=== PATIENT | female | born 1955 | race Asian ===

== ENCOUNTER 2016-08-24 20:10 | Emergency (ER) | payer OTHER ==
[~2016-08-24] VITALS: Ht 160 cm; Wt 50.9 kg
[2016-08-24 20:18] VITALS: BP 145/70; PULSE 76; RESP 16; O2SAT 98
[2016-08-24 21:03] LABS: EOSINOPHILS % (AUTO) 1.1 % (0-5); Mean Corpuscular Hemoglobin 27.5 pg (27.0-35.0); Mean Corpuscular Volume 85.6 fL (81-100); NEUTROPHILS % (AUTO) 72.3 % (40-74); Platelet Count 235 bil/L (150-400)
--- NOTE | 2016-08-24 21:13 | DRSVH ---
PROCEDURE: X-RAY CHEST ONE VIEW, PORTABLE ([id number]) INDICATIONS: Syncope TECHNIQUE: One view of the chest was acquired. COMPARISON: None. FINDINGS: Surgical changes and devices: None. Lungs and pleura: No pleural effusions or pneumothorax. Lungs are clear. Mediastinum: Mediastinal contours appear normal. Heart size is markedly enlarged. Bones and chest wall: No suspicious bony lesions. Overlying soft tissues appear unremarkable. IMPRESSION: Marked cardiomegaly. No prior comparisons are available to determine the acuity of this f inding. No acute airspace opacities. Dictated by: Natalie Elder M.D. on 08/24/2016 at 21:11 Approved by: Natalie Elder M.D. on 08/24/2016 at 21:12
--- NOTE | 2016-08-24 21:34 | ED.REPORT ---
HPI-Syncope Date of Service Aug 24, 2016 ED Provider: Guille Barajas MD History of Present Illness: Charu Galdamez is a 61 year old woman with a PMH of Afib on Coumadin, newly diagnosed CHF with elevated right sided pressures and paroxysmal Hypotension, and a strong family history of CVA with an older sister and her mother having severe strokes in their early sixties. History is obtained primarily from her Niece who works in the OR at [employer]. She relates that Charu had been feeling fatigued with a headache and cool extremities for the past 2-3 days, and was taking a nap in the evening before dinner; she then got up to go to the kitchen and was talking with her niece for a few minutes then complained of dizziness and sat down; shortly thereafter she began slumping to the right and lost conciousness. Her niece alerted EMS, and reports that the patient was insensate for at least 5 minutes before gradually returning to awareness over the next few minutes. She denies tonic clonic movements, bowel or bladder incontinence, tongue biting, facial drooping, slurred speech, unilateral weakness or tingling, or changes in vision or sensation. The patient states that she currently feels drowsy but otherwise has no complaints. Of note the patient was discharged from [facility] in [place] 18 days ago for CHF exacerbation. Nursing Notes Stated Complaint: SYNCOPE Chief Complaint: General Complaint Nursing Notes Reviewed: Yes Allergies: Coded Allergies: No Known Allergies (Unverified , 08/24/16) General Time Seen by Provider: 21:12 Chief Complaint Lost consciousness Syncope Description: Single episode Sat down because she was feeling dizzy, then slumped to the right and was not aware for about 5 minutes Hx Obtained From: Patient, Other family... (Niece) Onset Occurred: 1 - 4 hours ago Symptom Duration: 1 - 15 minutes Progression Since Onset: Gradually improving Recent Healthcare: Recent hospitalization Similar Sx Previous: No Risk-Syncope CAD Risk Stratification Hypertension TAD Risk Stratification Hypertension SAH Risk Stratification Hypertension Past Medical History Past Medical History Afib on Coumadin CHF with elevated right sided pressures Strong FHx of CVA Review of Systems Constitutional: Reports: Chills Neurologic: Reports: Dizziness Physical Exam Physical Exam Notes: Gen: A/O x3, quiet pleasant woman in NAD Neck: Supple, non tender, Full ROM, no thyromegally HEENT: PERRL, EOMI, no scleral icterus, no conjunctival pallor CV: RRR, no murmurs rubs or gallops Resp: Lungs CTA BL, no wheezing rales or rhonchi Extr: No cyanosis clubbing or edema Neuro: CN 2-12 intact, no focal neurologic deficit. Initial Vital Signs Vital Signs (First) Date Time Temp Pulse Resp B/P Pulse Ox O2 Delivery O2 Flow Rate FiO2 08/24/16 20:18 36.6 76 16 145/70 98 Room Air Initial VS: Reviewed, Vital signs normal Interpretation & Diagnostics Lab Results Interpretation Result Diagram: 08/24/16205808/[id number]/[id number] Test 08/24/16 20:59 08/24/16 21:45 08/24/16 21:50 08/24/16 23:10 White Blood Count 7.0th/mm3 (3.8-10.1) Red Blood Count 5.20mil/mm3 (3.90-5.20) Hemoglobin 14.3g/dL (12.0-15.6) Hematocrit 44.5% (35.0-46.0) Mean Corpuscular Volume 85.6fL (81-100) Mean Corpuscular Hemoglobin 27.5pg (27.0-35.0) Mean Corpuscular Hemoglobin Concent 32.1% (32.0-37.0) Red Cell Distribution Width 24.8% (12.3-15.4) Platelet Count 235bil/L (150-400) Neutrophils (%) (Auto) 72.3% (40-74) Lymphocytes (%) (Auto) 14.3% (14-46) Monocytes (%) (Auto) 11.0% (4-12) Eosinophils (%) (Auto) 1.1% (0-5) Basophils (%) (Auto) 1.0% (0-3) Prothrombin Time 26.2sec (8.1-12.5) Prothromb Time International Ratio 2.41ratio Sodium Level 133mEq/L (134-144) Potassium Level 3.8mEq/L (3.5-5.2) Chloride Level 96mEq/L (97-108) Carbon Dioxide Level 19mmol/L (18-29) Blood Urea Nitrogen 12mg/dL (8-27) Creatinine 0.55mg/dL (0.57-1.00) Estimat Glomerular Filtration Rate 160mL/min (>59) Glucose Level 122mg/dL (60-99) Calcium Level 9.3mg/dL (8.5-10.1) Magnesium Level 1.8mg/dL (1.6-2.6) Total Bilirubin 3.1mg/dL (0.0-1.2) Aspartate Amino Transf (AST/SGOT) 63U/L (0-50) Alanine Aminotransferase (ALT/SGPT) 46U/L (0-32) Alkaline Phosphatase 98U/L (25-165) Pro-B-Type Natriuretic Peptide 296.2pg/mL (0-287) Total Protein 8.0g/dL (6.4-8.4) Albumin 4.1g/dL (3.4-5.0) Hold Moody Top Tube Received (Received) Troponin T 0.010ug/L (0.0-0.011) Test 08/24/16 23:58 Urine Color Dark yellow (YELLOW) Urine Appearance Clear (CLEAR,HAZY) Urine pH 7.0 (5.0-8.0) Urine Specific [place] 1.015 (1.003-1.035) Urine Protein Tracemg/dL (NEG,TRACE) Urine Glucose (UA) Negativemg/dL (NEGATIVE) Urine Ketones 15mg/dL (NEGATIVE) Urine Occult Blood Trace (NEGATIVE) Urine Nitrite Negative (NEGATIVE) Urine Bilirubin Small (NEGATIVE) Urine Ictotest Positive (Negative) Urine Urobilinogen 2.0mg/dL (NORMAL) Urine Leukocyte Esterase Negative (NEGATIVE) Urine RBC 0-2/hpf (0-2) Urine WBC 0-5/hpf (0-5) Urine Epithelial Cells Occasional/hpf (NONE-MOD) Urine Crystals Oxalic acid crystals (NONE Urine Bacteria None/hpf (NONE-FEW) Urine Hyaline Casts None/lpf (NONE) Urine Granular Casts None seen (NONE SEEN) Urine Waxy Casts None seen (NONE SEEN) Urine Red Blood Cell Casts None seen (NONE SEEN) Urine White Blood Cell Casts None seen (NONE SEEN) Urine Mucus Present (None Seen) Urine Trichomonas None seen (NONE SEEN) Urine Yeast None (NONE SEEN) Urine Culture Reflexed Not indicated Lab values outside NL range: no clinical significance. X-Ray Chest Interpretation Interpretation / Wet Read by: Interpret - Radiologist NL X-Ray Chest Findings: No acute disease Miscellaneous: Cardiomegaly present CT Head Interpretation Interpretation / Wet Read by: Interpret - Radiologist NL CT Head Findings: No acute disease (microvascular ischemic changes) Re-Eval/Medical Decision Med Decision/Clinical Course Patient with a Strong family history for CVA in early sixties, Brain CT unremarkable with only early microvascular ischemic changes. Orthostatic BP unremarkable. Lab evaluation remarkable for mildly elevatged BNP and slight transaminitis with oxalate crystals in the urine. Serial Trop x2 negative. Given relatively unremarkable lab work and imaging patient appears appropriate to DC home with close follow up with her PCP. Patient was given discharge instructions and return precautions. Counseled Regarding: Diagnosis, Lab results, Need for follow-up, When/why to return to ED Discharge & Departure Shift Change Sign-Out Patient Care Transferred: No Discussed Complaint(s): Yes Laboratory Evaluation: Lab evaluation discussed Imaging Studies: Imaging discussed Impression: Primary Impression: Syncope Syncope type: unspecified Qualified Code: R55 - Syncope and collapse Disposition: Home Discharge Condition All VS Reviewed: Yes Condition: Stable Patient Instructions: Syncope (ED) Additional Instructions: It is unclear exactly what happened to cause your passing out event. We can say that you did not have a heart attack, and your brain scan shows that you did not have a large or ongoing stroke. You may have had a very small stroke called a TIA which resolved on its own, you may have also had a heart rhythm problem that resolved. I recommend that you follow up with your primary care doctor or another provider such as the residency Clinic for further evaluation possibly with a Holter monitor. I also recommend that you increase you water intake, now that you are on a water pill you are more prone to dehydration which can cause dizziness and fainting. If you have any difficulties speaking, any changes in vision or sensation, any drooping or your face, or weakness numbness or tingling in your arms or legs; please seek medical attention immediately. Referrals: Berto Josue MD Attending Statement The patient was seen and examined together with Dr. Rui David and I agree with the history, exam and plan as outlined in the note above. copies to: Berto Josue MD, David E DO Aug 24, 2016 21:34 Guille Barajas MD Aug 25, 2016 06:23
--- NOTE | 2016-08-24 21:46 | DRSVH ---
PROCEDURE: CT BRAIN WITHOUT CONTRAST ([id number]) INDICATIONS: syncope, atrial mural thrombus, headache TECHNIQUE: Noncontrast 4.5 mm thick angled axial sections acquired from the foramen magnum to the vertex, with c oronal reformats. COMPARISON: None. FINDINGS: Image quality: Excellent. CSF spaces: Basal cisterns are patent. No extra-axial fluid collections. The ventricles are symmet yaakov in size and shape. There is incidentally noted cavum septum pellucidum. Brain: No intracranial bleeds or masses. There is cerebral volume loss for age, with resultant vent ricular and sulcal prominence. There are periventricular and deep white matter chronic small vessel ischemic changes. There is intracranial internal carotid artery atherosclerosis. Skull and face: Calvarium and visualized facial bones appear intact, without suspicious lesions. Sinuses: Visualized sinuses and mastoids are clear. IMPRESSION: 1. No acute intracranial findings. 2. Mild findings likely associated with early microvascular ischemic changes. Dictated by: Natalie Elder M.D. on 08/24/2016 at 21:43 Approved by: Natalie Elder M.D. on 08/24/2016 at 21:44
[2016-08-24 22:11] LABS: INR 2.41 ratio
[2016-08-24 22:24] LABS: TROPONIN T 0.01 ug/L (0.0-0.011)
[2016-08-24 22:37] LABS: Magnesium 1.8 mg/dL (1.6-2.6)
[2016-08-24 23:59] VITALS: BP 117/58; PULSE 70; RESP 16; O2SAT 98
[2016-08-25 00:20] LABS: APPEARANCE,URINE CLEAR (CLEAR,HAZY); COLOR,URINE DARK YELLOW (YELLOW); OCCULT BLOOD,URINE TRACE (NEGATIVE)
[2016-08-25 00:21] LABS: ICTOTEST,URINE POSITIVE (Negative)
[2016-08-25 01:01] VITALS: BP 127/71; PULSE 74; RESP 22; O2SAT 96
== END 2016-08-25 00:50 | disposition home or self-care (01) ==
LOC: SED 20:10
DX: R55 Syncope and collapse (principal); I50.9 Heart failure, unspecified; I48.91 Unspecified atrial fibrillation; Z86.73 Personal history of transient ischemic attack (TIA), and cerebral infarction without residual deficits; Z79.01 Long term (current) use of anticoagulants